=== PATIENT | male | born 1950 | race Caucasian/White ===

== ENCOUNTER 2018-06-07 07:47 | Day surgery (SDC) | payer MEDICARE, BC ==
[2018-06-07] MEDS ORDERED: PROPOFOL 10 MG/ML VIAL IV ONE (07:48)
[2018-06-07] MEDS ORDERED: LIDOCAINE 2% MDV (20MG/ML) 20ML VIAL IV ONE (07:48)
--- NOTE | 2018-06-08 08:00 | Operative Note ---
DATE OF SURGERY: 06/07/18 OPERATION: COLONOSCOPY with cold forceps polypectomy. PREOPERATIVE DIAGNOSIS: Colon cancer screening, initial exam, average risk. POSTOPERATIVE DIAGNOSES: 1. Mild sigmoid diverticulosis. 2. Diminutive sigmoid colon polyp, status post cold forceps removal. 3. Small hypertrophied anal papilla. PROCEDURE: After informed consent was obtained from the patient, he was placed in the left lateral decubitus position in the endoscopy suite, sedated and monitored by the department of anesthesia. Digital rectal exam was unremarkable. A well-lubricated [id number] colonoscope was inserted into the rectum and advanced to the cecum. Preparation quality was good. The cecum, cecal bulb, ileocecal valve, appendiceal orifice, ascending colon, transverse colon, and descending colon were free of inflammatory changes, mass lesions, or polyps. There was a diminutive sigmoid colon polyp removed with a cold forceps. Other than scattered diverticula in the sigmoid colon and diminutive polyp, no other abnormalities were identified. The rectum was unremarkable in forward views but J-turn views did reveal a small hypertrophied anal papilla. The endoscope was straightened, the rectal ampulla deflated, and the endoscope was removed. RECOMMENDATIONS: The patient should follow a high-fiber diet and fiber supplement. We will await results of pathology. He should undergo repeat exam in 5-10 years. As always, thank you for allowing me to participate in the healthcare of your patients. CC: Enoch Michael, DO [facility]
== END 2018-06-07 09:10 | disposition home or self-care (01) ==
LOC: HOP 07:47
PROVIDERS: ATTEND Internal Medicine Gastroenterology
DX: Z12.11 Encounter for screening for malignant neoplasm of colon (principal); D12.5 Benign neoplasm of sigmoid colon; K57.30 Diverticulosis of large intestine without perforation or abscess without bleeding; K62.89 Other specified diseases of anus and rectum; I10 Essential (primary) hypertension